=== PATIENT | male | born 2005 | race Caucasian/White ===

== ENCOUNTER 2024-03-23 13:21 | Emergency (ER) | payer MEDICAID ==
[2024-03-23 13:36] VITALS: O2SAT 99
--- NOTE | 2024-03-23 14:28 | ED Physician Documentation ---
History of Present Illness - Stated complaint Stated Complaint: LT HIP INJURY - Chief complaint Chief Complaint: Ext Problem - Additonal information Additional information: 18-year-old male identifies as female presents emergency department for left hip and left foot pain. Patient is quite irritable when I ask her questions she continues to say already talked to the nurse I do not need to tell you everything. For the limited information given the patient he was rollerskating last night somehow lost his balance fell onto her left hip and her left foot. There was no head injury denies use of blood thinners able to ambulate without any difficulty has taken Tylenol ibuprofen for pain no swelling bruising of the left hip or left foot. PD PAST MEDICAL HISTORY - Past Medical History Past Medical History: Yes Psych: Depression, Anxiety, ADD/ADHD, Other Other Past Medical History: on HRT - Past Surgical History Ortho: Other HEENT: Tonsil/Adenoidectomy - Allergies Allergies/Adverse Reactions: Allergies Allergy/AdvReac Type Severity Reaction Status Date / Time No Known Drug Allergies Allergy Verified 03/23/24 13:30 - Social History Does the pt smoke?: No Smoking Status: Never smoker PD ED PE NORMAL - Vitals Vital signs reviewed: Yes - General General: Alert and oriented X 3, No acute distress, Well developed/nourished - HEENT HEENT: Atraumatic, PERRL - Neck Neck: No bony TTP - Derm Derm: Normal color, Warm and dry, No rash, Other (No ecchymosis) - Extremities Extremities: No deformity, No tenderness to palpate, Normal ROM s pain, No edema, No calf tenderness / cord Results - Vitals Vitals: Vital Signs - 24 hr 03/23/24 03/23/24 13:25 15:15 Temperature 36.5 C 36.5 C Heart Rate 94 94 Respiratory 16 16 Rate Blood Pressure 147/64 H 147/67 H O2 Saturation 99 99 PD Medical Decision Making - ED course ED course: 18-year-old presents emerged part for left hip left foot pain. She is already taking Tylenol ibuprofen at home and says that this did help with the pain. Able to ambulate with any difficulty. There is tenderness to the volar aspect of the left foot but there is no swelling no bruising no abrasions able to ambulate without any difficulty patient would not allow me to evaluate her left hip patient states that she is confident that there is no left hip fracture. Offered to do x-rays of the left foot but patient says that she does not think it is broken which I agree with. She was asking for something stronger aside from Tylenol ibuprofen I informed her that Tylenol and ibuprofen should be enough to alleviate the pain that she is experiencing and encouraged to apply ice 20 minutes at a time 1 hour off for additional pain relief. Return precautions given all questions answered patient safe for discharge at this time. Departure - Departure Disposition: 01 Home, Self Care Clinical Impression: Contusion of left foot Instructions: ED Contusion Foot Comments: Thank you for trusting us with your care. It appears that you have a deep bone bruise on your left foot. You can apply ice 20 minutes at a time 1 hour off to help with Pain and discomfort as well as swelling. You can have 1000 mg of Tylenol every 8 hours for pain discomfort and 600 to 800 mg of ibuprofen every 6 hours for pain and discomfort. Keep your left foot elevated above your heart periodically throughout the day and follow-up with primary care provider as needed if pain persist longer than 4 to 6 weeks. Forms: PCP List Discharge Date/Time: 03/23/24 15:16
[2024-03-23] MEDS: ACETAMINOPHEN 500 MG TABLET PO STA (15:15)
[2024-03-23 15:16] VITALS: BP 147/67
== END 2024-03-23 15:16 | disposition home or self-care (01) ==
LOC: ED 13:21
DX: S90.32XA Contusion of left foot, initial encounter (principal); V00.121A Fall from non-in-line roller-skates, initial encounter; Y93.51 Activity, roller skating (inline) and skateboarding
CPT/HCPCS: 99283; A9270

== ENCOUNTER 2024-04-04 20:11 | Emergency (ER) | payer MEDICAID ==
--- NOTE | 2024-04-04 20:28 | ED Physician Documentation ---
PD HPI MHE - Stated complaint Stated Complaint: MHE - Chief complaint Chief Complaint: MHE - History obtained from History obtained from: Patient - History of Present Illness Pain level max: 0 Pain level now: 0 - Additional information Additional information: Patient is a 18-year-old transgender biological male who lives at [facility] in [place]. She states that he cut himself tonight. She was not trying to harm herself. She states that she is not suicidal but feels like she is "mentally unstable". She states that all she does is get high all day long. She is requesting an inpatient psychiatric stay to "reset his brain". She moved here 2 weeks ago from [place]. She states that his parents kicked him out of [facility] back in [place]. Patient states that she has been hospitalized several times back in [place]. Does not have a counselor. Does not have a psychiatrist. Is not talking with the counselors at [facility]. Review of Systems Constitutional: denies: Fever, Chills GI: denies: Vomiting : denies: Dysuria Skin: denies: Rash PD PAST MEDICAL HISTORY - Past Medical History Past Medical History: Yes Psych: Depression, Anxiety, ADD/ADHD, Other - Past Surgical History Ortho: Other HEENT: Tonsil/Adenoidectomy - Allergies Allergies/Adverse Reactions: Allergies Allergy/AdvReac Type Severity Reaction Status Date / Time No Known Drug Allergies Allergy Verified 04/04/24 20:28 - Social History Does the pt smoke?: No Smoking Status: Never smoker PD ED PE NORMAL - Vitals Vital signs reviewed: Yes - General General: Alert and oriented X 3, No acute distress - HEENT HEENT: Moist mucous membranes - Neck Neck: Supple, no meningeal sign - Cardiac Cardiac: RRR - Respiratory Respiratory: No respiratory distress, Clear bilaterally - Abdomen Abdomen: Soft, Non tender, Non distended - Derm Derm: Warm and dry - Extremities Extremities: Other (Superficial cuts to the right arm. None that require repair. There is old scarring to both arms.) - Neuro Neuro: Alert and oriented X 3 - Psych Psych: Normal mood, Normal affect Results - Vitals Vitals: Vital Signs - 24 hr 04/04/24 20:24 Temperature 37.0 C Heart Rate 104 H Respiratory 20 Rate Blood Pressure 137/62 H O2 Saturation 99 Oxygen O2 Source Room air - Labs Labs: Laboratory Tests 04/04/24 04/04/24 04/04/24 20:29 20:39 20:39 WBC 10.5 RBC 3.99 L Hgb 11.8 L Hct 35.3 L MCV 88.5 MCH 29.6 MCHC 33.4 RDW 13.2 Plt Count 356 MPV 9.2 Neut # (Auto) 6.3 Lymph # (Auto) 3.2 [place] # (Auto) 0.6 Eos # (Auto) 0.3 Baso # (Auto) 0.0 Absolute Nucleated RBC 0.00 Nucleated RBC % 0.0 Sodium 140 Potassium 3.7 Chloride 108 Carbon Dioxide 26 Anion Gap 6.0 BUN 15 Creatinine 0.8 Estimated GFR (MDRD) 125 Glucose 108 H Calcium 9.1 Magnesium 1.8 Total Bilirubin 0.3 AST 32 ALT 51 Alkaline Phosphatase 92 Total Protein 6.2 L Albumin 3.9 Globulin 2.3 Albumin/Globulin Ratio 1.7 Lipase 23 TSH 1.47 Urine Color Urine Clarity Urine pH Ur Specific [place] Urine Protein Urine Glucose (UA) Urine Ketones Urine Occult Blood Urine Nitrite Urine Bilirubin Urine Urobilinogen Ur Leukocyte Esterase Ur Microscopic Review Urine Culture Comments Salicylates < 1.5 Urine Opiates Screen Ur Buprenorphine Scrn Ur Oxycodone Screen Urine Methadone Screen Acetaminophen 1.9 Ur Barbiturates Screen Ur Tricyclics Screen Ur Phencyclidine Scrn Ur Amphetamine Screen U Methamphetamines Scrn U Benzodiazepines Scrn Urine Cocaine Screen U Cannabinoids Screen Ur Drug Screen Comment Ethyl Alcohol < 10.0 SARS-CoV-2 (PCR) NOT DETECTED 04/04/24 21:20 WBC RBC Hgb Hct MCV MCH MCHC RDW Plt Count MPV Neut # (Auto) Lymph # (Auto) [place] # (Auto) Eos # (Auto) Baso # (Auto) Absolute Nucleated RBC Nucleated RBC % Sodium Potassium Chloride Carbon Dioxide Anion Gap BUN Creatinine Estimated GFR (MDRD) Glucose Calcium Magnesium Total Bilirubin AST ALT Alkaline Phosphatase Total Protein Albumin Globulin Albumin/Globulin Ratio Lipase TSH Urine Color YELLOW Urine Clarity CLEAR Urine pH 6.0 Ur Specific [place] 1.025 Urine Protein NEGATIVE Urine Glucose (UA) NEGATIVE Urine Ketones TRACE Urine Occult Blood NEGATIVE Urine Nitrite NEGATIVE Urine Bilirubin NEGATIVE Urine Urobilinogen 1 (NORMAL) Ur Leukocyte Esterase NEGATIVE Ur Microscopic Review NOT INDICATED Urine Culture Comments NOT INDICATED Salicylates Urine Opiates Screen NEGATIVE Ur Buprenorphine Scrn NEGATIVE Ur Oxycodone Screen NEGATIVE Urine Methadone Screen NEGATIVE Acetaminophen Ur Barbiturates Screen NEGATIVE Ur Tricyclics Screen NEGATIVE Ur Phencyclidine Scrn NEGATIVE Ur Amphetamine Screen NEGATIVE U Methamphetamines Scrn NEGATIVE U Benzodiazepines Scrn NEGATIVE Urine Cocaine Screen NEGATIVE U Cannabinoids Screen POSITIVE H Ur Drug Screen Comment CUTOFF CONC BELOW: Ethyl Alcohol SARS-CoV-2 (PCR) PD Medical Decision Making - ED course Complexity details: reviewed results, re-evaluated patient, considered differential, d/w patient ED course: Patient is not actively suicidal. She states that she has no plan, she states that she cuts out of frustration. She fell asleep in the emergency department and when she awoke, was irritated that no one had told her how long this visit was going to take and when the psychiatrist was going to be able to talk to her. Informed her that we do not have control over how quickly the telepsychiatry consult occurs. She states that she does not want to stay in the hospital any longer and wants to go back to [facility]. She is not actively suicidal. She can follow-up with the counselor there. Prior to discharge, she took her belongings and left from the emergency department. Patient informed that she may return to the emergency department anytime should she change her mind. She can also contact the crisis line. Patient verbalizes understanding of this. This document was made in part using voice recognition software. While efforts are made to proofread this document, sound alike and grammatical errors may occur. Departure - Departure Disposition: Left Prior to Disposition Clinical Impression: Depression Qualifiers: Depression Type: unspecified Qualified Code(s): F32.A - Depression, unspecified Condition: Good Instructions: ED Depression Comments: You can speak with a counselors at [facility] if you are feeling like you are having mental health issues. They can help you with this. You can also contact the crisis line. If you are having any thoughts that you do not want to live, thoughts of hurting yourself, or thoughts of hurting anyone else, please call 911, the crisis line at 849, or go to your nearest emergency department. Crisis Line and is available to talk to someone [email or web address] is also available to chat with someone online if you prefer. There are also many resources on this website and apps for your phone to help with your mental health You can also text the word START to [phone] to chat with someome via text. Forms: PCP List Discharge Date/Time: 04/04/24 22:41
[2024-04-04 20:36] VITALS: BP 137/62; O2SAT 99
[2024-04-04 20:48] LABS: BASOPHILS % (AUTO) 0.4 %; EOSINOPHILS # (AUTO) 0.3 10^3/uL (0.0-0.7); EOSINOPHILS % (AUTO) 3.1 %; HCT - HEMATOCRIT 35.3 % (42.0-52.0); HGB - HEMOGLOBIN 11.8 g/dL (14.0-18.0); LYMPHOCYTES # (AUTO) 3.2 10^3/uL (1.5-3.5); LYMPHOCYTES % (AUTO) 30.2 %; MEAN CORPUSCULAR HEMOGLOBIN 29.6 pg (27.0-31.0); MEAN CORPUSCULAR HGB CONC 33.4 g/dL (32.0-36.0); MEAN CORPUSCULAR VOLUME 88.5 fL (80.0-94.0); MEAN PLATELET VOLUME 9.2 fL (7.4-11.4); MONOCYTES # (AUTO) 0.6 10^3/uL (0.0-1.0); MONOCYTES % (AUTO) 5.9 %; NEUTROPHILS # (AUTO) 6.3 10^3/uL (1.5-6.6); NEUTROPHILS % (AUTO) 59.9 %; PLT - PLATELET COUNT 356 10^3/uL (130-450); RED BLOOD COUNT 3.99 10^6/uL (4.70-6.10); RED CELL DISTRIBUTION WIDTH 13.2 % (12.0-15.0); WHITE BLOOD COUNT 10.5 x10^3/uL (4.8-10.8)
[2024-04-04 21:08] LABS: ACETAMINOPHEN 1.9 ug/mL; ALBUMIN 3.9 g/dL (3.2-5.5); ALBUMIN/GLOBULIN RATIO 1.7 (1.0-2.2); ALKALINE PHOSPHATASE 92 IU/L (42-121); ALT ALANINE AMINOTRANSFERASE 51 IU/L (10-60); AST ASPARTATE AMINOTRANSFERASE 32 IU/L (10-42); BILIRUBIN,TOTAL 0.3 mg/dL (0.2-1.0); BUN - BLOOD UREA NITROGEN 15 mg/dL (6-20); CALCIUM 9.1 mg/dL (8.5-10.3); CARBON DIOXIDE - CO2 26 mmol/L (21-32); CHLORIDE 108 mmol/L (101-111); CREATININE 0.8 mg/dL (0.6-1.3); ETOH - ETHANOL < 10.0 mg/dL; GFR - MDRD 125 (>89); GLUCOSE 108 mg/dL (74-104); LIPASE 23 U/L (11-82); MAGNESIUM 1.8 mg/dL (1.7-2.3); POTASSIUM 3.7 mmol/L (3.5-4.5); SODIUM 140 mmol/L (135-145); TOTAL PROTEIN 6.2 g/dL (6.4-8.9)
[2024-04-04 21:11] LABS: SALICYLATE < 1.5 mg/dL
[2024-04-04 21:34] LABS: BILIRUBIN,URINE NEGATIVE (NEGATIVE); GLUCOSE, URINE (UA) NEGATIVE (NEGATIVE); KETONES,URINE (UA) TRACE mg/dL (NEGATIVE); LEUKOCYTE ESTERASE, URINE NEGATIVE (NEGATIVE); NITRITE,URINE NEGATIVE (NEGATIVE); OCCULT BLOOD,URINE NEGATIVE (NEGATIVE); PROTEIN,URINE NEGATIVE (NEGATIVE); UROBILINOGEN,URINE 1 (NORMAL) E.U./dL (NORMAL)
[2024-04-04 21:35] LABS: CLARITY,URINE CLEAR (CLEAR)
[2024-04-04 21:40] LABS: THYROID STIMULATING HORMONE 1.47 uIU/mL (0.34-5.60)
[2024-04-04 21:44] LABS: AMPHETAMINE SCREEN,URINE NEGATIVE (NEGATIVE); BARBITURATE SCREEN,UR NEGATIVE (NEGATIVE); BENZODIAZEPINES SCREEN, URINE NEGATIVE (NEGATIVE); BUPRENORPHINE SCREEN, URINE NEGATIVE (NEGATIVE); COCAINE SCREEN URINE NEGATIVE (NEGATIVE); METHADONE SCREEN, URINE NEGATIVE (NEGATIVE); METHAMPHETAMINES SCREEN, URINE NEGATIVE (NEGATIVE); OPIATE SCREEN, URINE NEGATIVE (NEGATIVE); OXYCODONE SCREEN, URINE NEGATIVE (NEGATIVE); THC CANNABINOID SCREEN, URINE POSITIVE (NEGATIVE); TRICYCLIC ANTIDEPRESSANT,URINE NEGATIVE (NEGATIVE)
--- NOTE | 2024-04-04 22:21 | TELEPSYCH PHYS NOTE ---
ITP Telepsych Consult Consult Date: 04/04/24 Name of Referring Provider:: Heriberto Bah MD Reason for Consult: Mental Health Evaluation - Assessment Language: Northern Irish Residential Gas Heat Technician Required: No Cultural, Mormonism or Spiritual Preferences: Denies Notes: [facility] Chief Complaint: Self Harm and "Mentally Unstable." History of Present Illness: Patient is a 18 year old transgender male that presents to the ED for self harm and feeling "mentally unstable. Patient cut self on. Patient is staying at [facility] in [place] after being kicked out of [facility] house in [place] two weeks ago. Patient states she feels "mentally unstable" and would like to reset her brain in an inpatient mental health unit. She does admit to "just getting high all day." Psychiatric History - Treatment History: Inpatient for mental health several times in [place]. Does not currently have a mental health medication provider or therapist. Does not utilize counselors at [facility]. Community Resources Accessed: N/A - Medication & Allergies Allergies/Adverse Reactions: Allergies Allergy/AdvReac Type Severity Reaction Status Date / Time No Known Drug Allergies Allergy Verified 04/04/24 20:28 - Drug & Alcohol History Does patient have Drug/ETOH history or addictive behavior?: Yes Use: Uses substance without health or social issues: Cannabis - Medical History Psychiatric: reports: Depression, Anxiety, ADD/ADHD, Other - Surgical History HEENT: reports: Tonsil/Adenoidectomy Orthopedic: reports: Other
== END 2024-04-04 22:41 | disposition home or self-care (01) ==
LOC: ED 20:11
DX: F32.A Depression, unspecified (principal)
CPT/HCPCS: 36415; 80053; 80143; 80179; 80306; 81001; 81003; 82077; 83690; 83735; 84443; 85025; 87086; 87635; 99283

== ENCOUNTER 2024-07-18 09:09 | Observation (INO) ==
--- NOTE | 2024-07-18 11:33 | ED Physician Documentation ---
PD HPI ABD PAIN Stated complaint Stated Complaint: ABD PAIN Chief complaint Chief Complaint: Abd Pain Additional information Additional information: 20-year-old male identifies as female currently transitioning on progesterone and estradiol for these medications presents emergency department for 3 to 4 days of abdominal pain and fevers at 203 degrees at home. Patient says that she has no history of abdominal surgeries and has never experienced any pain like this before. Last bowel movement was today patient says it is hard to say if it was hard or not has been taking Tylenol ibuprofen at home with little to no comfort also received 30 mg Toradol given by EMS with little to no relief. Meds/Allgy Home Medications Ambulatory Orders Medication Instructions Recorded Confirmed estradiol valerate 20 mg/mL 10 mg IM OAW 05/24/24 07/18/24 intramuscular oil fluoxetine 10 mg tablet 10 mg PO DAILY 05/24/24 07/18/24 progesterone micronized 100 mg 100 mg PO DAILY 05/24/24 07/18/24 capsule Allergies Allergies Allergy/AdvReac Type Severity Reaction Status Date / Time No Known Drug Allergies Allergy Verified 07/15/24 15:04 [facility] Medical History Medical History (Updated 07/18/24 @ 17:22 by Glen Mejia DNP) Deliberate self-cutting Surgical History Surgical History H/O hand surgery Social History Social History (Updated 07/15/24 @ 15:08 by Luis Markham RN) Smoking Status: Current every day smoker Number of Years Smoked: 3 Do you dip or chew tobacco?: Yes Do you vape?: Yes Patient requests smoking cessation consult: No Initiate information on smoking cessation: No Relationship: Level: Independent Do you feel safe in your home environment?: Yes Suffered physical, verbal, emotional, or financial abuse?: No History of Abuse: No ETOH Use: None Frequency: Occasional Substance Use: former substance user POLST Patient has POLST: No Exam Constitutional abnormal general appearance other (ill appearing), no apparent distress, abnormal body habitus (overweight), no limitations and alert HENMT normocephalic Eyes EOMs intact bilaterally and conjunctivae normal Chest inspection of chest normal and palpation of chest normal Respiratory breath sounds equal bilaterally, normal respiratory effort, clear to auscultation bilaterally and no wheezes Cardiovascular normal heart rate noted and regular rhythm noted Gastrointestinal abdomen normal to inspection, abdomen soft to palpation and tender to palpation (severe), (LLQ), (RLQ), (periumbilical) and (suprapubic) Genitourinary no CVA tenderness and bladder abnormal to palpation (tender) Skin skin color abnormal (pale) Results Vitals Vitals: Vital Signs - 24 hr 07/18/24 09:13 07/18/24 11:22 07/18/24 12:12 Temperature 35.6 C L Temperature Source Temporal Artery Scan Pulse Rate 92 78 Respiratory Rate 16 18 Blood Pressure 117/68 122/80 O2 Saturation 98 98 O2 Source Room air Room air Pain Intensity 8 3 7 07/18/24 13:00 07/18/24 13:05 07/18/24 14:58 Temperature Temperature Source Pulse Rate 102 H Respiratory Rate 16 Blood Pressure 102/73 O2 Saturation 97 O2 Source Room air Pain Intensity 6 6 8 07/18/24 15:00 07/18/24 16:02 07/18/24 16:16 Temperature Temperature Source Pulse Rate 100 Respiratory Rate 18 Blood Pressure 110/74 O2 Saturation 97 O2 Source Room air Pain Intensity 6 6 8 Oxygen O2 Source Room air Labs Labs: Laboratory Tests 07/18/24 07/18/24 07/18/24 11:25 11:43 15:30 WBC 30.5 H RBC 4.15 L Hgb 11.6 L Hct 34.4 L MCV 82.9 MCH 28.0 MCHC 33.7 RDW 13.2 Plt Count 326 MPV 9.5 Neut # (Auto) Not Reportable Lymph # (Auto) Not Reportable [place] # (Auto) Not Reportable Eos # (Auto) Not Reportable Baso # (Auto) Not Reportable Absolute Nucleated RBC Not Reportable Total Counted 100 Band Neuts % (Manual) 22 H Abnorm Lymph % (Manual) 0 Metamyelocytes % 2 H Nucleated RBC % Not Reportable Neutrophils # (Manual) 28.1 H Lymphocytes # (Manual) 1.2 L Monocytes # (Manual) 0.6 Eosinophils # (Manual) 0.0 Basophils # (Manual) 0.0 Differential Comment MANUAL DIFFERENTIAL RBC Morph Micro Appear 1+ ANISOCYTOSIS Sodium 131 L Potassium 2.8 L Chloride 95 L Carbon Dioxide 26 Anion Gap 10.0 BUN 12 Creatinine 0.9 Estimated GFR (MDRD) 108 Glucose 97 Calcium 8.5 Magnesium 1.9 Total Bilirubin 2.6 H AST 31 ALT 53 Alkaline Phosphatase 172 H Total Protein 6.8 Albumin 3.4 Globulin 3.4 Albumin/Globulin Ratio 1.0 Lipase < 10 L Urine Color DARK YELLOW Urine Clarity HAZY Urine pH 6.0 Ur Specific [place] 1.010 Urine Protein 30 H Urine Glucose (UA) 100 H Urine Ketones TRACE Urine Occult Blood MODERATE H Urine Nitrite NEGATIVE Urine Bilirubin MODERATE H Urine Urobilinogen >=8.0 H Ur Leukocyte Esterase NEGATIVE Urine RBC 6-10 H Urine WBC 11-25 H Ur Squamous Epith Cells FEW Squamous Urine Bacteria Few Ur Microscopic Review INDICATED Urine Culture Comments INDICATED Nasal Adenovirus (PCR) NOT DETECTED Nasal B. parapertussis DNA (PCR) NOT DETECTED Nasal Coronavir 229E PCR NOT DETECTED Nasal Coronavir HKU1 PCR NOT DETECTED Nasal Coronavir NL63 PCR NOT DETECTED Nasal Coronavir OC43 PCR NOT DETECTED Nasal Enterovir/Rhinovir PCR NOT DETECTED Nasal Influenza B PCR NOT DETECTED Nasal Influenza A PCR NOT DETECTED Nasal Parainfluen 1 PCR NOT DETECTED Nasal Parainfluen 2 PCR NOT DETECTED Nasal Parainfluen 3 PCR NOT DETECTED Nasal Parainfluen 4 PCR NOT DETECTED Nasal RSV (PCR) NOT DETECTED Nasal B.pertussis DNA PCR NOT DETECTED Nasal C.pneumoniae (PCR) NOT DETECTED Uvaldo Human Metapneumo PCR NOT DETECTED Nasal M.pneumoniae (PCR) NOT DETECTED Nasal SARS-CoV-2 (PCR) NOT DETECTED Rads (name of study) CT abdomen pelvis with: Relevant Findings:: Final report received and EMP independent interpretation of test Interpretation: IMPRESSION: Abnormal diffuse mesenteric edema lower abdomen/pelvis as discussed above. Moderate bladder wall thickening which may be reactive or related to cystitis. Moderate wall thickening of the sigmoid colon, rectum and anus wall thickening, suspicious for infectious/inflammatory colitis, proctitis or other process as discussed above. Moderate hepatosplenomegaly. Mild ileus/bowel stasis. Follow-up is needed. PD Medical Decision Making ED course Complexity details: reviewed results, re-evaluated patient, d/w patient and d/w media sales consultant (Gen Surg Dr. Madsen) ED course: 19 male presents emergency department for lower abdominal pain. Differentials include UTI, prostatitis, Constipation, small obstruction, appendicitis. labs are complete for further evaluation he has significant leukocytosis, white blood cell count 30.5. Mild anemia, hemoglobin 11.6, hematocrit 34.4. hypokalemia, 2.840 mEq p.o. potassium administered. Mild hyponatremia 131, bilirubin elevated at 2.6 alk phos also elevated at 172. Urinalysis has hematuria, glucose, bilirubin no leukocytes no nitrates. Respiratory swab negative. CT abdomen pelvis complete for further evaluation and reveal abnormal appearance of the lower abdomen/pelvis with diffuse mesenteric edema mostly surrounding the mid and distal sigmoid colon, rectum to the anus along with moderate wall thickening as well as urinary bladder. Moderate bladder wall thickening measuring 1.cm this possibly could be due to infectious/inflammatory, ulcerative colitis, Crohn's disease or other acute process ischemic colitis unlikely nine 19-year-old. I spoke with on-call GEN surge Dr. Maldonado about the patient's case as well as the CT findings including the hepatosplenomegaly he believes that this is unlikely colitis given his white count and he thinks that patient would benefit from hospitalization and antibiotics but no surgical intervention is warranted at this time. I did asked the patient if he has recently stuck anything of his rectum and he declined and said that it has not been anything recent but he has put things in the rectum in the past. I spoke with on-call hospitalist Akua Reza who is graciously agreed to admit the patient and patient is very eager to stay for further workup and evaluation. 2 sets of blood cultures were collected and patient was started on IV vancomycin. Discharge Plan Discharge Patient Disposition: 66 [facility] DC/Xfer Condition: Stable Clinical Impression: Leukocytosis, Hypokalemia, Hepatosplenomegaly Interventions: ED Admission Assessment Last Done: 07/18/24 17:15
[2024-07-18] MEDS ORDERED: iohexoL-300 100 ML VIAL ONE (11:35)
[2024-07-18 11:52] LABS: BASOPHILS % (AUTO) 0.1 %; EOSINOPHILS % (AUTO) 0.1 %; HCT - HEMATOCRIT 34.4 % (42.0-52.0); HGB - HEMOGLOBIN 11.6 g/dL (14.0-18.0); LYMPHOCYTES % (AUTO) 2.8 %; MEAN CORPUSCULAR HGB CONC 33.7 g/dL (32.0-36.0); MEAN CORPUSCULAR VOLUME 82.9 fL (80.0-94.0); MEAN PLATELET VOLUME 9.5 fL (7.4-11.4); MONOCYTES % (AUTO) 3.8 %; NEUTROPHILS % (AUTO) 91.6 %; PLT - PLATELET COUNT 326 10^3/uL (130-450); RED BLOOD COUNT 4.15 10^6/uL (4.70-6.10); RED CELL DISTRIBUTION WIDTH 13.2 % (12.0-15.0); WHITE BLOOD COUNT 30.5 x10^3/uL (4.8-10.8)
[2024-07-18 11:57] LABS: ABNORMAL LYMPHS % (MANUAL) 0 %
[2024-07-18 12:01] LABS: BILIRUBIN,URINE MODERATE (NEGATIVE); GLUCOSE, URINE (UA) 100 mg/dL (NEGATIVE); KETONES,URINE (UA) TRACE mg/dL (NEGATIVE); LEUKOCYTE ESTERASE, URINE NEGATIVE (NEGATIVE); NITRITE,URINE NEGATIVE (NEGATIVE); OCCULT BLOOD,URINE MODERATE (NEGATIVE); PROTEIN,URINE 30 mg/dL (NEGATIVE); UROBILINOGEN,URINE >=8.0 E.U./dL (NORMAL)
[2024-07-18 12:01] LABS: ALBUMIN 3.4 g/dL (3.2-5.5); ALKALINE PHOSPHATASE 172 IU/L (42-121); ALT ALANINE AMINOTRANSFERASE 53 IU/L (10-60); AST ASPARTATE AMINOTRANSFERASE 31 IU/L (10-42); BILIRUBIN,TOTAL 2.6 mg/dL (0.2-1.0); BUN - BLOOD UREA NITROGEN 12 mg/dL (6-20); CALCIUM 8.5 mg/dL (8.5-10.3); CARBON DIOXIDE - CO2 26 mmol/L (21-32); CHLORIDE 95 mmol/L (101-111); CREATININE 0.9 mg/dL (0.6-1.3); GFR - MDRD 108 (>89); GLUCOSE 97 mg/dL (74-104); POTASSIUM 2.8 mmol/L (3.5-4.5); SODIUM 131 mmol/L (135-145); TOTAL PROTEIN 6.8 g/dL (6.4-8.9)
[2024-07-18 12:04] LABS: LIPASE < 10 U/L (11-82)
[2024-07-18] MEDS: HYDROmorphone 0.5 MG/0.5 ML SYRINGE IVP STA ×3 (12:12→16:16)
[2024-07-18] MEDS: ONDANSETRON 4 MG/2 ML VIAL IVP STA (12:12)
[2024-07-18] MEDS: SODIUM CHLORIDE 0.9% 1,000 ML IV STA ×2 (12:13→18:38)
[2024-07-18 12:17] LABS: CLARITY,URINE HAZY (CLEAR)
[2024-07-18 12:29] LABS: BAND NEUTROPHILS % (MANUAL) 22 %; DIFFERENTIAL COMMENT MANUAL DIFFERENTIAL; LYMPHOCYTES # (MANUAL) 1.2 10^3/uL (1.5-3.5); LYMPHOCYTES % (MANUAL) 4 %; METAMYELOCYTES % (MANUAL) 2 %; MONOCYTES # (MANUAL) 0.6 10^3/uL (0.0-1.0); NEUTROPHILS # (MANUAL) 28.1 10^3/uL (1.5-6.6); RBC MORPHOLOGY (MULTIPLE) 1+ ANISOCYTOSIS (NORMAL)
[2024-07-18 12:45] LABS: BACTERIA,URINE Few /HPF (None Seen); SQUAMOUS EPITHELIAL CELL,UR FEW Squamous (<= Few)
[2024-07-18] MEDS: POTASSIUM CHLORIDE 20 MEQ TABLET PO STA (13:03)
--- NOTE | 2024-07-18 15:41 | CT Report ---
PROCEDURE: CT Abdomen/Pelvis W with IV contrast INDICATIONS: Abdominal pain, fever CONTRAST: 100ml omni 300 TECHNIQUE: After the administration of intravenous contrast, a CT scan of the abdomen and pelvis was performed. Images were recorded and evaluated at appropriate window settings. Reformats: coronal and sagittal. F or radiation dose reduction, the following was used: automated exposure control, adjustment of mA and /or kV according to patient size. COMPARISON: None. FINDINGS: ABDOMEN / PELVIS: Abnormal appearance of the lower abdomen/pelvis with diffuse mesenteric edema most notably surroundin g the mid and distal sigmoid colon, rectum to the anus along with moderate wall thickening as well as the urinary bladder. Moderate bladder wall thickening measuring up to 1 cm which may be reactive or related to cystitis or other process. Findings are suspicious for colitis, proctitis commonly infecti ous/inflammatory, ulcerative colitis, Crohn's disease or other process. Ischemic colitis would be unl ikely in a 19-year-old. Mild bilateral paracolic gutter and pelvic free fluid most notably posterior to the rectum, presacral without focal loculated fluid collection to suggest abscess. Moderate splenomegaly, the spleen measures up to approximately 17.5 cm CC x 13.5 cm AP by 8.5 cm frias sverse maximal dimensions. Nonspecific mild prominence of the splenic vein. Moderate hepatomegaly the liver measures 21 cm in CC dimension of the right lobe. Mild ileus/bowel stasis with mildly dilated proximal jejunum with a few air-fluid levels measures up to [address] evidence of bowel obstruction. The appendix is nondilated. Cecum, ascen ding, transverse, descending colon within normal limits. Lower chest: Mild right lower lobe subsegmental atelectasis and nonspecific patchy groundglass opacif ication. Gallbladder: No radiopaque stones or wall thickening. Biliary tree: No intrahepatic or extrahepatic dilation, accounting for age. Pancreas: No pancreatic ductal dilation. Adrenals: No adrenal nodule. Kidneys and ureters: No hydronephrosis. No renal cystic lesion which requires follow up. No solid mas s. Stomach: No gastric dilation. No abnormal wall thickening. Lymph nodes: No central or retroperitoneal adenopathy. Vessels: No infrarenal aortic aneurysm. Patent portal vein. Reproductive organs: Unremarkable. Bones normal without focal osseous lesion. IMPRESSION: Abnormal diffuse mesenteric edema lower abdomen/pelvis as discussed above. Moderate bladder wall thickening which may be reactive or related to cystitis. Moderate wall thickening of the sigmoid colon, rectum and anus wall thickening, suspicious for infect ious/inflammatory colitis, proctitis or other process as discussed above. Moderate hepatosplenomegaly. Mild ileus/bowel stasis. Follow-up is needed. Reviewed by: José Manuel Stewart MD on 07/18/2024 3:39 PM PST Approved by: José Manuel Stewart MD on 07/18/2024 3:39 PM PST Station ID: [id number]
[2024-07-18] MEDS: PIPERACILLIN/TAZOBACTAM 3.375 GM in SODIUM CHLORIDE 0.9% MINIBAG 100 ML IV STA (16:16)
[2024-07-18 16:32] LABS: B. PARAPERTUSSIS- RESP PCR PAN NOT DETECTED; B. PERTUSSIS- RESP PCR PANEL NOT DETECTED; C. PNEUMONIAE- RESP PCR PANEL NOT DETECTED; CORONAVIRUS 229E-RESP PCR NOT DETECTED; CORONAVIRUS HKU1-RESP PCR NOT DETECTED; CORONAVIRUS NL63-RESP PCR NOT DETECTED; CORONAVIRUS OC43-RESP PCR NOT DETECTED; HUMAN METAPNEUMOVIRUS NOT DETECTED; INFLUENZA A- RESP PCR PANEL NOT DETECTED; INFLUENZA B - RESP PCR PANEL NOT DETECTED; M. PNEUMONIAE- RESP PCR PANEL NOT DETECTED; PARAINFLUENZA VIRUS 1 NOT DETECTED; PARAINFLUENZA VIRUS 2 NOT DETECTED; PARAINFLUENZA VIRUS 3 NOT DETECTED; PARAINFLUENZA VIRUS 4 NOT DETECTED; RHINOVIRUS/ENTEROVIRUS NOT DETECTED; RSV- RESP PCR PANEL NOT DETECTED; SARS-CoV-2 -RESP PCR PANEL NOT DETECTED
[2024-07-18] MEDS ORDERED: NS W/40 MEQ KCL 1,000 ML IV SCH (17:00)
[2024-07-18] MEDS ORDERED: ONDANSETRON ODT 4 MG TABLET TL PRN (17:19)
--- NOTE | 2024-07-18 17:23 | HISTORY & PHYSICAL EXAMINATION ---
Chief Complaint Chief Complaint Chief Complaint: Fevers, abdominal pain History of Present Illness Admitted From Admitted From:: ED History Obtained From History obtained from: Patient, chart review Exam Limitations: None History of Present Illness HPI Comment/Other: 19-year-old MTF transgender on progesterone and estradiol presents to the ED with 3 to 4 days of abdominal pain and fevers at home. Denies any history of abdominal surgeries. Denies receptive anal intercourse, trauma/assault. He reports last bowel movement was today. He reports delayed start with urination and rectal pain during urination. In the ER, he was noted to have a severe leukocytosis at 30.5. He is mildly tachycardic at 100, and his abdominal pain is requiring IV pain medication. His potassium is noted to be 2.8, so hospitalist was contacted for admission. General surgery was also contacted, they report there is no need for surgical consultation at this time but they are on standby if needed. Meds/Allgy Home Medications Ambulatory Orders Medication Instructions Recorded Confirmed estradiol valerate 20 mg/mL 10 mg IM OAW 05/24/24 07/18/24 intramuscular oil fluoxetine 10 mg tablet 10 mg PO DAILY 05/24/24 07/18/24 progesterone micronized 100 mg 100 mg PO DAILY 05/24/24 07/18/24 capsule Allergies Allergies Allergy/AdvReac Type Severity Reaction Status Date / Time No Known Drug Allergies Allergy Verified 07/15/24 15:04 [facility], [facility] Medical History Medical History (Updated 07/18/24 @ 17:22 by Glen Mejia DNP) Deliberate self-cutting Surgical History Surgical History H/O hand surgery Social History Social History (Updated 07/15/24 @ 15:08 by Luis Markham RN) Smoking Status: Never smoker Do you vape?: Yes Relationship: Level: Independent Do you feel safe in your home environment?: Yes Suffered physical, verbal, emotional, or financial abuse?: No History of Abuse: No ETOH Use: None Frequency: Occasional Substance Use: cannabis (any form) POLST Patient has POLST: No Review of Systems Status of ROS: 10 or more systems reviewed and unremarkable except as noted in history and below Constitutional Reports: Fever and Chills Eyes Denies: Pain or Irritation Cardiovascular Reports: palpitations (Increased heart rate at home during episodes of abdominal pain/Fevers); Denies: Irregular heart rate, edema or shortness of breath with exertion Respiratory Denies: Shortness of breath or Chest congestion Gastrointestinal Reports: Abdominal pain, Nausea, Vomiting, Poor appetite and Rectal pain; Denies: Abdominal distention Genitourinary Reports: Painful urination and Difficulty urinating Integumentary/Breast Reports: Other (Remote history of cutting) Neurological Denies: General weakness Exam Constitutional normal general appearance, no apparent distress and abnormal body habitus (obese) HENMT normocephalic and head/scalp atraumatic Eyes PERRL Neck/C-Spine visual inspection normal Lymph no lymphadenopathy noted Chest inspection of chest normal Respiratory breath sounds equal bilaterally Cardiovascular normal heart rate noted, regular rhythm noted and no murmur Gastrointestinal tender to palpation (LLQ), (LUQ) and (suprapubic) Genitourinary CVA tenderness noted 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 given by ER provider Additional 40 mill equivalent IV BMP in a.m. Manage colitis (2) Colitis: Plan: Per general surgery, no indication for surgical consult at this time Aggressive IV fluid resuscitation Patient reports no receptive anal intercourse or assault Patient history is questionable, will go ahead and perform STD testing including syphilis, HIV, gonorrhea, trichomonas Zosyn Okay for diet (3) Leukocytosis: Plan: Manage colitis as above CBC in a.m. (4) Cystitis: Plan: Zosyn Urine culture pending STD panel (5) Deliberate self-cutting: Plan: Reports no recent cutting, scars look old No concern at this time for ongoing self-harm Plan Placed in observation Patient request full code Reports that his grandmother, Naina, is surrogate decision-maker Lab Results Lab results reviewed: Yes 07/18/24 11:43 07/18/24 11:43 Diagnostic Imaging Results Diagnostic Imaging Results: positive Final report reviewed Core Measures Anticipated LOS I expect patient to be DC'd or transferred within 96 hours.: Yes DVT/VTE - Prophylaxis VTE/DVT Prophylaxis med ordered at admit?: Yes
[2024-07-18] MEDS: NS W/20 MEQ KCL 1,000 ML IV SCH (17:39)
[2024-07-18] MEDS: SODIUM CHLORIDE FLUSH 0.9% 10 ML SYRINGE IVP SCH (17:40)
[2024-07-18] MEDS: MORPHINE 2 MG/ML CARPUJECT IVP STA (17:40)
[2024-07-18] MEDS: ACETAMINOPHEN 500 MG TABLET PO SCH (17:40)
[2024-07-18] MEDS: oxyCODONE 5 MG TABLET PO PRN (18:13)
[2024-07-18] MEDS: SODIUM CHLORIDE 0.9% 1,000 ML IV ONE (18:39)
[2024-07-18] MEDS: LORazepam 0.5 MG TABLET PO PRN (18:52)
[2024-07-18] MEDS ORDERED: ACETAMINOPHEN 325 MG TABLET PO PRN (19:31)
[2024-07-18] MEDS: IBUPROFEN 400 MG TABLET PO PRN (19:48)
[2024-07-18] MEDS: MORPHINE 10 MG/ML VIAL IVP PRN (19:56)
[2024-07-18] MEDS: PIPERACILLIN/TAZOBACTAM 4.5 GM in SODIUM CHLORIDE 0.9% MINIBAG 100 ML IV SCH (19:58)
[2024-07-18 21:01] LABS: CHLAMYDIA TRACHOMATIS DNA NEGATIVE (NEGATIVE); NEISSERIA GONORRHOEAE DNA NEGATIVE (NEGATIVE); TRICHOMONAS VAGINALIS DNA NEGATIVE (NEGATIVE)
[2024-07-18] MEDS: HYDROmorphone 0.5 MG/0.5 ML SYRINGE IVP PRN (22:02)
[2024-07-18] MEDS: polyethylene glycoL 3350 17 GM PACKET PO SCH (22:51)
[2024-07-18] MEDS ORDERED: MELATONIN 3 MG TABLET PO PRN (22:51)
[2024-07-18] MEDS: traZODone 50 MG TABLET PO STA (22:55)
[2024-07-19 06:09] LABS: HCT - HEMATOCRIT 33.3 % (42.0-52.0); HGB - HEMOGLOBIN 11.1 g/dL (14.0-18.0); LYMPHOCYTES # (AUTO) 0.8 10^3/uL (1.5-3.5); MEAN CORPUSCULAR HEMOGLOBIN 28.2 pg (27.0-31.0); MEAN CORPUSCULAR HGB CONC 33.3 g/dL (32.0-36.0); MEAN CORPUSCULAR VOLUME 84.7 fL (80.0-94.0); MEAN PLATELET VOLUME 9.6 fL (7.4-11.4); MONOCYTES % (AUTO) 2.4 %; NEUTROPHILS # (AUTO) 36.3 10^3/uL (1.5-6.6); PLT - PLATELET COUNT 364 10^3/uL (130-450); RED BLOOD COUNT 3.93 10^6/uL (4.70-6.10); RED CELL DISTRIBUTION WIDTH 13.3 % (12.0-15.0)
[2024-07-19 06:20] LABS: SLIDE REVIEW? Indicated; WHITE BLOOD COUNT 41.2 x10^3/uL (4.8-10.8)
[2024-07-19 06:24] LABS: BILIRUBIN,TOTAL 2.6 mg/dL (0.2-1.0); CALCIUM 8.3 mg/dL (8.5-10.3); CREATININE 0.7 mg/dL (0.6-1.3); POTASSIUM 3.6 mmol/L (3.5-4.5); TOTAL PROTEIN 6.1 g/dL (6.4-8.9)
[2024-07-19 06:46] LABS: PLATELET ESTIMATE, MANUAL NORMAL (130-450,000) (NORMAL); PLATELET MORPHOLOGY NORMAL APPEARANCE (NORMAL); RBC MORPHOLOGY (MULTIPLE) NORMAL APPEARANCE (NORMAL); WBC MORPHOLOGY (MULTIPLE) NORMAL APPEARANCE (NORMAL)
[2024-07-19 06:47] LABS: DIFFERENTIAL COMMENT MANUAL=AUTO DIFF
--- NOTE | 2024-07-19 08:10 | PROVIDER PROGRESS NOTE ---
Subjective Prog Note Date Prog Note Date: 07/19/24 Subjective Pt reports feeling: No change Subjective: Still with abdominal pain, reports dry mouth, upset about constantly being interrupted during sleep Current Medications Current Medications Current Medications: Current Medications Generic Name Dose Route Start Last Admin Trade Name Freq PRN Reason Stop Dose Admin Acetaminophen 1,000 mg 07/18/24 17:00 07/19/24 00:24 Acetaminophen 500 Mg Tablet PO 1,000 mg Q8H LÓPEZ Administration Acetaminophen 650 mg 07/18/24 19:31 Acetaminophen 325 Mg Tablet PO Q6H PRN pain, fever Enoxaparin Sodium 40 mg 07/19/24 09:00 Enoxaparin 40 Mg/0.4 Ml Syringe SUBQ DAILY LÓPEZ Hydromorphone HCl 0.25 mg 07/18/24 21:27 07/19/24 08:00 Hydromorphone 0.5 Mg/0.5 Ml Syringe IVP 0.25 mg Q4H PRN Administration Severe Pain (Level 7-10) Piperacillin Sod/Tazobactam 100 mls @ 25 mls/hr 07/18/24 19:00 07/19/24 07:24 Sod 4.5 gm/ Sodium Chloride IV Infused Q8H LÓPEZ Infusion Ibuprofen 400 mg 07/18/24 19:30 07/18/24 19:48 Ibuprofen 400 Mg Tablet PO 400 mg Q6HR PRN Administration Moderate Pain (Level 4-6) Lorazepam 0.5 mg 07/18/24 18:30 07/19/24 08:00 Lorazepam 0.5 Mg Tablet PO 0.5 mg Q6H PRN Administration Anxiety Melatonin 3 mg 07/18/24 22:51 Melatonin 3 Mg Tablet PO QPM PRN sleep Melatonin 3 mg 07/19/24 21:00 Melatonin 3 Mg Tablet PO QPM LÓPEZ Ondansetron HCl 4 mg 07/18/24 17:19 Ondansetron Odt 4 Mg Tablet TL Q6HR PRN Nausea / Vomiting Ondansetron HCl 4 mg 07/18/24 17:19 Ondansetron 4 Mg/2 Ml Vial IVP Q6HR PRN Nausea / Vomiting Oxycodone HCl 5 mg 07/18/24 17:19 07/19/24 05:33 Oxycodone 5 Mg Tablet PO 5 mg Q4HR PRN Administration Moderate Pain (Level 4-6) Polyethylene Glycol 17 gm 07/18/24 22:35 07/18/24 22:51 Polyethylene Glycol 3350 17 Gm Packet PO 17 gm DAILY LÓPEZ Administration Sodium Chloride 10 ml 07/18/24 17:19 Sodium Chloride Flush 0.9% 10 Ml Syringe IVP PRN PRN NEEDED PER PROVIDER ORDERS Sodium Chloride 10 ml 07/18/24 17:19 07/19/24 00:15 Sodium Chloride Flush 0.9% 10 Ml Syringe IVP 10 ml 0100,0900,1700 LÓPEZ Administration Objective Vital Signs/Intake & Output Reviewed Vital Signs: Yes Vital Signs: Vital Signs x48h Temp Pulse Resp BP Pulse Ox 07/19/24 03:11 36.5 C 109 H 22 164/85 H 98 07/19/24 00:23 36.3 C L 99 22 136/83 H 97 Intake & Output: Intake & Output 07/16/24 07/17/24 07/18/24 07/19/24 23:59 23:59 23:59 23:59 Intake Total 3350 / 3350 1000 / 1000 Output Total 275 / 275 625 / 625 Balance 3075 / 3075 375 / 375 Weight (kg) 136 kg Objective General Appearance: positive No acute distress Eyes Bilateral: positive Normal inspection ENT: positive No signs of dehydration Neck: positive No JVD Respiratory: positive Chest non-tender and No respiratory distress Cardiovascular: positive Regular rate & rhythm and No murmur Abdomen: positive Tenderness (Left side) Skin: positive Color nml Extremities: positive Non-tender and No pedal edema Neurologic/Psychiatric: positive Oriented x3 Lab Results 07/19/24 05:35 07/19/24 05:35 Other Labs: Lab Results x24hrs 07/19/24 07/18/24 07/18/24 Range/Units 05:35 17:25 15:30 WBC 41.2 H* (4.8-10.8) x10^3/uL RBC 3.93 L (4.70-6.10) 10^6/uL Hgb 11.1 L (14.0-18.0) g/dL Hct 33.3 L (42.0-52.0) % MCV 84.7 (80.0-94.0) fL MCH 28.2 (27.0-31.0) pg MCHC 33.3 (32.0-36.0) g/dL RDW 13.3 (12.0-15.0) % Plt Count 364 (130-450) 10^3/uL MPV 9.6 (7.4-11.4) fL Neut # (Auto) 36.3 H Lymph # (Auto) 0.8 L [place] # (Auto) 1.0 Eos # (Auto) 0.0 Baso # (Auto) 0.0 Absolute Nucleated RBC 0.00 Total Counted Band Neuts % (Manual) Not Reportable (0 - 10) % Abnorm Lymph % (Manual) Not Reportable % Metamyelocytes % ( - 0) % Nucleated RBC % 0.0 Neutrophils # (Manual) Not Reportable (1.5-6.6) 10^3/uL Lymphocytes # (Manual) Not Reportable (1.5-3.5) 10^3/uL Monocytes # (Manual) Not Reportable (0.0-1.0) 10^3/uL Eosinophils # (Manual) Not Reportable (0-0.7) 10^3/uL Basophils # (Manual) Not Reportable (0-0.1) 10^3/uL Differential Comment MANUAL=AUTO DIFF Manual Slide Review Indicated WBC Morphology NORMAL APPEARANCE (NORMAL) Platelet Estimate NORMAL (130-450,000) (NORMAL) Platelet Morphology NORMAL APPEARANCE (NORMAL) RBC Morph Micro Appear NORMAL APPEARANCE (NORMAL) Sodium 134 L (135-145) mmol/L Potassium 3.6 (3.5-4.5) mmol/L Chloride 100 L (101-111) mmol/L Carbon Dioxide 27 (21-32) mmol/L Anion Gap 7.0 (6-13) BUN 9 (6-20) mg/dL Creatinine 0.7 (0.6-1.3) mg/dL Estimated GFR (MDRD) 144 (>89) Glucose 90 (74-104) mg/dL Calcium 8.3 L (8.5-10.3) mg/dL Magnesium 2.0 (1.7-2.3) mg/dL Total Bilirubin 2.6 H (0.2-1.0) mg/dL AST 15 (10-42) IU/L ALT 32 (10-60) IU/L Alkaline Phosphatase 147 H (42-121) IU/L Total Protein 6.1 L (6.4-8.9) g/dL Albumin 3.0 L (3.2-5.5) g/dL Globulin 3.1 (2.1-4.2) g/dL Albumin/Globulin Ratio 1.0 (1.0-2.2) Lipase (11-82) U/L Urine Color Urine Clarity (CLEAR) Urine pH (5.0-7.5) PH Ur Specific [place] (1.002-1.030) Urine Protein (NEGATIVE) mg/dL Urine Glucose (UA) (NEGATIVE) mg/dL Urine Ketones (NEGATIVE) mg/dL Urine Occult Blood (NEGATIVE) Urine Nitrite (NEGATIVE) Urine Bilirubin (NEGATIVE) Urine Urobilinogen (NORMAL) E.U./dL Ur Leukocyte Esterase (NEGATIVE) Urine RBC (0-5) /HPF Urine WBC (0-3) /HPF Ur Squamous Epith Cells (<= Few) Urine Bacteria (None Seen) /HPF Ur Microscopic Review Urine Culture Comments Nasal Adenovirus (PCR) NOT DETECTED Nasal B. parapertussis DNA (PCR) NOT DETECTED Nasal Coronavir 229E PCR NOT DETECTED Nasal Coronavir HKU1 PCR NOT DETECTED Nasal Coronavir NL63 PCR NOT DETECTED Nasal Coronavir OC43 PCR NOT DETECTED Nasal Enterovir/Rhinovir PCR NOT DETECTED Nasal Influenza B PCR NOT DETECTED Nasal Influenza A PCR NOT DETECTED Nasal Parainfluen 1 PCR NOT DETECTED Nasal Parainfluen 2 PCR NOT DETECTED Nasal Parainfluen 3 PCR NOT DETECTED Nasal Parainfluen 4 PCR NOT DETECTED Nasal RSV (PCR) NOT DETECTED Nasal B.pertussis DNA PCR NOT DETECTED Nasal C.pneumoniae (PCR) NOT DETECTED U[place]do Human Metapneumo PCR NOT DETECTED Nasal M.pneumoniae (PCR) NOT DETECTED Nasal SARS-CoV-2 (PCR) NOT DETECTED Chlam trachomat DNA PCR NEGATIVE (NEGATIVE) N.gonorrhoeae DNA (PCR) NEGATIVE (NEGATIVE) T. vaginalis (PCR) NEGATIVE (NEGATIVE) 07/18/24 07/18/24 Range/Units 11:43 11:25 WBC 30.5 H (4.8-10.8) x10^3/uL RBC 4.15 L (4.70-6.10) 10^6/uL Hgb 11.6 L (14.0-18.0) g/dL Hct 34.4 L (42.0-52.0) % MCV 82.9 (80.0-94.0) fL MCH 28.0 (27.0-31.0) pg MCHC 33.7 (32.0-36.0) g/dL RDW 13.2 (12.0-15.0) % Plt Count 326 (130-450) 10^3/uL MPV 9.5 (7.4-11.4) fL Neut # (Auto) Not Reportable Lymph # (Auto) Not Reportable [place] # (Auto) Not Reportable Eos # (Auto) Not Reportable Baso # (Auto) Not Reportable Absolute Nucleated RBC Not Reportable Total Counted 100 Band Neuts % (Manual) 22 H (0 - 10) % Abnorm Lymph % (Manual) 0 % Metamyelocytes % 2 H ( - 0) % Nucleated RBC % Not Reportable Neutrophils # (Manual) 28.1 H (1.5-6.6) 10^3/uL Lymphocytes # (Manual) 1.2 L (1.5-3.5) 10^3/uL Monocytes # (Manual) 0.6 (0.0-1.0) 10^3/uL Eosinophils # (Manual) 0.0 (0-0.7) 10^3/uL Basophils # (Manual) 0.0 (0-0.1) 10^3/uL Differential Comment MANUAL DIFFERENTIAL Manual Slide Review WBC Morphology (NORMAL) Platelet Estimate (NORMAL) Platelet Morphology (NORMAL) RBC Morph Micro Appear 1+ ANISOCYTOSIS (NORMAL) Sodium 131 L (135-145) mmol/L Potassium 2.8 L (3.5-4.5) mmol/L Chloride 95 L (101-111) mmol/L Carbon Dioxide 26 (21-32) mmol/L Anion Gap 10.0 (6-13) BUN 12 (6-20) mg/dL Creatinine 0.9 (0.6-1.3) mg/dL Estimated GFR (MDRD) 108 (>89) Glucose 97 (74-104) mg/dL Calcium 8.5 (8.5-10.3) mg/dL Magnesium 1.9 (1.7-2.3) mg/dL Total Bilirubin 2.6 H (0.2-1.0) mg/dL AST 31 (10-42) IU/L ALT 53 (10-60) IU/L Alkaline Phosphatase 172 H (42-121) IU/L Total Protein 6.8 (6.4-8.9) g/dL Albumin 3.4 (3.2-5.5) g/dL Globulin 3.4 (2.1-4.2) g/dL Albumin/Globulin Ratio 1.0 (1.0-2.2) Lipase < 10 L (11-82) U/L Urine Color DARK YELLOW Urine Clarity HAZY (CLEAR) Urine pH 6.0 (5.0-7.5) PH Ur Specific [place] 1.010 (1.002-1.030) Urine Protein 30 H (NEGATIVE) mg/dL Urine Glucose (UA) 100 H (NEGATIVE) mg/dL Urine Ketones TRACE (NEGATIVE) mg/dL Urine Occult Blood MODERATE H (NEGATIVE) Urine Nitrite NEGATIVE (NEGATIVE) Urine Bilirubin MODERATE H (NEGATIVE) Urine Urobilinogen >=8.0 H (NORMAL) E.U./dL Ur Leukocyte Esterase NEGATIVE (NEGATIVE) Urine RBC 6-10 H (0-5) /HPF Urine WBC 11-25 H (0-3) /HPF Ur Squamous Epith Cells FEW Squamous (<= Few) Urine Bacteria Few (None Seen) /HPF Ur Microscopic Review INDICATED Urine Culture Comments INDICATED Nasal Adenovirus (PCR) Nasal B. parapertussis DNA (PCR) Nasal Coronavir 229E PCR Nasal Coronavir HKU1 PCR Nasal Coronavir NL63 PCR Nasal Coronavir OC43 PCR Nasal Enterovir/Rhinovir PCR Nasal Influenza B PCR Nasal Influenza A PCR Nasal Parainfluen 1 PCR Nasal Parainfluen 2 PCR Nasal Parainfluen 3 PCR Nasal Parainfluen 4 PCR Nasal RSV (PCR) Nasal B.pertussis DNA PCR Nasal C.pneumoniae (PCR) Uvaldo Human Metapneumo PCR Nasal M.pneumoniae (PCR) Nasal SARS-CoV-2 (PCR) Chlam trachomat DNA PCR (NEGATIVE) N.gonorrhoeae DNA (PCR) (NEGATIVE) T. vaginalis (PCR) (NEGATIVE) Assessment/Plan Problem List (1) Leukocytosis: Impression: Increased from 30.5-41.2 Continue Zosyn Check MRSA PCR I expect preliminary culture results later today to help guide further antibiotic choice (2) Colitis: Impression: Per general surgery, no indication for surgical consult at this time Aggressive IV fluid resuscitation Patient reports no receptive anal intercourse or assault Patient history is questionable, will go ahead and perform STD testing including syphilis, HIV, gonorrhea, trichomonas Zosyn Okay for diet (3) Cystitis: Impression: Zosyn Culture pending STD panel negative thus far (4) Hypokalemia: Impression: Repleted and resolved Chemistry panel daily while in the hospital (5) Deliberate self-cutting: Impression: Scars are old No concern for ongoing self-harm
[2024-07-19] MEDS: FLUoxetine 10 MG CAPSULE PO SCH (09:59)
[2024-07-19] MEDS: ENOXAPARIN 40 MG/0.4 ML SYRINGE SUBQ SCH (09:59)
[2024-07-19] MEDS ORDERED: SODIUM CHLORIDE 0.9% 1,000 ML IV SCH ×2 (10:24→11:00)
--- NOTE | 2024-07-19 10:54 | PHARMACY PROGRESS NOTE ---
Best Possible Medication History Admit Date and Time: 07/18/24 1637 Home Medications Medication Instructions Recorded Confirmed Type estradiol valerate 20 mg/mL 10 mg IM OAW 05/24/24 07/18/24 History intramuscular oil fluoxetine 10 mg tablet 10 mg PO DAILY 05/24/24 07/18/24 History progesterone micronized 100 mg 100 mg PO DAILY 05/24/24 07/18/24 History capsule Processed by: Nursing Patient Interview: Completed Secondary Source(s): Prescription bottles, Pharmacy records and Insurance records [facility] Statement: As the person ultimately responsible for medication therapy, providers are able to order a medication from an existing home medication list in [facility] via the "Reconcile Routine" prior to Confirmation of that medication by client support administrator. Such practice is discouraged except when the physician, in their clinical judgment, deems that a medical need exists for a medication without regard to previous use.
[2024-07-19] MEDS: SODIUM CHLORIDE 0.9% 1,000 ML IV SCH (11:05)
[2024-07-19] MEDS: oxyCODONE 5 MG TABLET PO PRN (11:05)
[2024-07-19] MEDS: PROGESTERONE 100 MG PO SCH (12:16)
[2024-07-19] MEDS: ESTRADIOL VALERATE 20 MG/ML IM SCH (12:18)
[2024-07-19] MEDS: OIL IM SCH (12:18)
[2024-07-19] MEDS ORDERED: LORazepam 1 MG TABLET PO PRN (17:51)
[2024-07-19] MEDS: SODIUM CHLORIDE 0.9% 1,000 ML IV STA (19:53)
[2024-07-19] MEDS: AMOX/CLAV 500 MG/125 MG TABLET PO SCH (20:14)
[2024-07-19] MEDS: QUEtiapine 25 MG TABLET PO SCH (21:08)
[2024-07-19] MEDS: MELATONIN 3 MG TABLET PO SCH (21:08)
[2024-07-19] MEDS: ONDANSETRON 4 MG/2 ML VIAL IVP PRN (23:44)
[2024-07-20 03:02] VITALS: O2SAT 97
[2024-07-20 03:09] LABS: HIV SCREEN 4TH GENERATION Non Reactive (Non Reactive)
[2024-07-20 06:32] LABS: BASOPHILS % (AUTO) 0.1 %; EOSINOPHILS % (AUTO) 0.2 %; HCT - HEMATOCRIT 28.2 % (42.0-52.0); HGB - HEMOGLOBIN 9.5 g/dL (14.0-18.0); LYMPHOCYTES % (AUTO) 4.6 %; MEAN CORPUSCULAR HEMOGLOBIN 28.3 pg (27.0-31.0); MEAN CORPUSCULAR HGB CONC 33.7 g/dL (32.0-36.0); MEAN CORPUSCULAR VOLUME 83.9 fL (80.0-94.0); MEAN PLATELET VOLUME 9.8 fL (7.4-11.4); MONOCYTES % (AUTO) 3.8 %; NEUTROPHILS % (AUTO) 88.6 %; PLT - PLATELET COUNT 342 10^3/uL (130-450); RED BLOOD COUNT 3.36 10^6/uL (4.70-6.10); RED CELL DISTRIBUTION WIDTH 13.8 % (12.0-15.0); WHITE BLOOD COUNT 30.2 x10^3/uL (4.8-10.8)
[2024-07-20 06:38] LABS: ABNORMAL LYMPHS % (MANUAL) 0 %
[2024-07-20 07:03] LABS: BAND NEUTROPHILS % (MANUAL) 7 %; LYMPHOCYTES # (MANUAL) 1.8 10^3/uL (1.5-3.5); LYMPHOCYTES % (MANUAL) 6 %; MONOCYTES # (MANUAL) 1.5 10^3/uL (0.0-1.0); NEUTROPHILS # (MANUAL) 26.9 10^3/uL (1.5-6.6)
[2024-07-20 07:04] LABS: DIFFERENTIAL COMMENT MANUAL DIFFERENTIAL; PLATELET ESTIMATE, MANUAL NORMAL (130-450,000) (NORMAL); PLATELET MORPHOLOGY NORMAL APPEARANCE (NORMAL); RBC MORPHOLOGY (MULTIPLE) 1+ HYPOCHROMASIA (NORMAL)
[2024-07-20 09:40] LABS: THYROID STIMULATING HORMONE 6.15 uIU/mL (0.34-5.60)
[2024-07-20 09:45] VITALS: BP 105/47; TEMP 97.5
[2024-07-20] MEDS: GI COCKTAIL 120 ML BOTTLE PO PRN (10:54)
[2024-07-20] MEDS: PIPERACILLIN/TAZOBACTAM 4.5 GM in SODIUM CHLORIDE 0.9% MINIBAG 100 ML IV SCH (10:55)
--- NOTE | 2024-07-20 10:55 | Discharge Summary ---
"Discharge Summary Admit Date: 07/18/24 Discharge Date: 07/20/24 Discharging Provider: Glen Mejia NP Primary Care Provider: Does not remember PCPs name Code Status: Attempt Resuscitation DIAGNOSES Admission Diagnoses: Hypokalemia Colitis Leukocytosis Cystitis, acute Deliberate self cutting Discharge Diagnoses with Status of Each Condition: Hypokalemia Resolved Colitis Acute Leukocytosis Acute Cystitis-acute Deliberate self cutting History of HPI History of Present Illness: 19-year-old MTF transgender on progesterone and estradiol presents to the ED with 3 to 4 days of abdominal pain and fevers at home. Denies any history of abdominal surgeries. Denies receptive anal intercourse, trauma/assault. Reports last bowel movement was today. Reports delayed start with urination and rectal pain during urination. In the ER, she was noted to have a severe leukocytosis at 30.5. Mildly tachycardic at 100, and abdominal pain required IV pain medication. Potassium was noted to be 2.8, so hospitalist was contacted for admission. General surgery was also contacted, they report there is no need for surgical consultation at this time but they are on standby if needed. CONSULTS | PROCEDURES Consultations: General surgery was consulted by ER provider HOSPITAL COURSE Hospital Course: Placed in observation and started on IV Zosyn for colitis/cystitis. All cultures are no growth to date. Symptoms have improved after aggressive IV fluid resuscitation and antibiotics. Hypokalemia resolved after repletion. Denies assault, but will go ahead and cover for STIs with a one-time dose of azithromycin. WBC initially went up, but is now going down, so she will be discharged on Augmentin If her symptoms do not resolve, will likely need workup for other causes of colitis such as ulcerative colitis. Has history of cutting herself out of frustration, recommend she gets established with therapy/psychiatry ALLERGIES Allergies Allergy/AdvReac Type Severity Reaction Status Date / Time No Known Drug Allergies Allergy Verified 07/15/24 15:04 MEDICATIONS Ambulatory Orders Medication Instructions Recorded Confirmed estradiol valerate 20 mg/mL 10 mg IM TH 05/24/24 07/19/24 intramuscular oil fluoxetine 10 mg tablet 10 mg PO DAILY 05/24/24 07/18/24 progesterone micronized 100 mg 100 mg PO DAILY 05/24/24 07/18/24 capsule amoxicillin 875 mg-potassium 1 tab PO BID #60 tabs 12/20/24 clavulanate 125 mg tablet oxycodone 5 mg tablet 10 mg (2 x 5 mg) PO Q4HR PRN 07/20/24 Moderate Pain (Level 4-6) 3 days #20 tabs PHYSICAL EXAM AT DISCHARGE General Appearance: positive No acute distress and Alert Eyes Bilateral: positive Normal inspection ENT: positive ENT inspection nml Neck: positive Nml inspection Respiratory: positive Chest non-tender Cardiovascular: positive Regular rate & rhythm Peripheral Pulses: positive 2+ Abdomen: positive Tenderness Skin: positive Color nml Extremities: positive Non-tender Neurologic/Psychiatric: positive Oriented x3 LABS 07/20/24 06:18 07/19/24 05:35 DIAGNOSTIC IMAGING Diagnostic Imaging Results: Final report reviewed Diagnostic Imaging Results Comments: CT abdomen/pelvis: Abnormal diffuse mesenteric edema lower abdomen/pelvis as discussed above. Moderate bladder wall thickening which may be reactive or related to cystitis. Moderate wall thickening of the sigmoid colon, rectum and anus wall thickening, suspicious for infectious/inflammatory colitis, proctitis or other process as discussed above. Moderate hepatosplenomegaly. Mild ileus/bowel stasis. Follow-up is needed. SEPSIS Current Stage of Sepsis: Sepsis Possible source of Sepsis: GI tract/intra-abdominal FOLLOW UP Follow Up: With PCP in 1 week TIME SPENT Time Spent in Discharge (Minutes): 35 Discharge Plan Discharge Patient Disposition: 01 Home, Self Care Condition: Stable Medically Cleared Date:: 07/20/24 Prescriptions: New oxycodone 5 mg Tablet 10 mg PO Q4HR PRN (Reason: Moderate Pain (Level 4-6)) 3 Days Qty: 20 0RF amoxicillin-pot clavulanate 875-125 mg tablet 1 tab PO BID Qty: 60 0RF Continued fluoxetine 10 mg tablet 10 mg PO DAILY Patient Comments: Take 1 tablet by mouth once a day for mood disorder estradiol valerate 20 mg/mL oil 10 mg IM TH Patient Comments: taken every Tuesday progesterone micronized 100 mg capsule 100 mg PO DAILY Diet: Regular Interventions: Discharge Last Done: 07/20/24 12:19 Discharge Checklist - Nursing Last Done: 07/20/24 12:19 Health Concerns: You are a 19-year-old patient with past medical history significant for self- harm, Hand surgery, in the process of transitioning to female on progesterone and estradiol who presented to the ED with 3 to 4 days of abdominal pain and fevers. Workup was significant for colitis and urinary tract infection. Because of this colitis, you had a low potassium level which is the reason why you were admitted.Your symptoms were suggestive of the infection becoming systemic, so you were placed on IV antibiotics and your white blood cell count has improved after 2 days of antibiotics. I am discharging you home on the same medication regimen you are on prior to admission with the addition of Augmentin which you will take twice a day until the bottle is empty. I am providing you with some oxycodone that you can take for stomach pain. I would suggest that you pick remover an [id number] Mylanta or Pepto as this may help with your abdominal symptoms I am unsure the cause of your colitis. It seems to be responding to antibiotics. If this does not go away after your course of antibiotics, reach out to your primary care provider for further workup Care Plan Goals: I would like for you to finish your course of antibiotics. If your symptoms do not resolve on these antibiotics please reach out to your primary care provider. You should follow-up with your primary care provider regardless within a week. Assessment: Reported living at [facility], and that you have family that she can reach out to his for support. No limitations on performing activities of daily living. Reach out to nursing with any questions about your medication regimen. Follow- up with primary care within a week Plan of Treatment: Discharge medications: Augmentin 875 mg p.o. twice daily Oxycodone 10 mg p.o. every 4 as needed, 10 total doses Print Language: Congolese Patient Instructions: ED Gastroenteritis Bacterial Stand Alone Forms: PCP List"
[2024-07-20] MEDS: SODIUM CHLORIDE FLUSH 0.9% 10 ML SYRINGE IVP PRN (11:02)
[2024-07-20] MEDS: AZITHROMYCIN 250 MG TABLET PO STA (11:13)
[2024-07-21 07:08] LABS: ADENOVIRUS F 40/41 Not Detected (Not Detected); ASTROVIRUS Not Detected (Not Detected); C DIFFICILE TOXIN A/B Not Detected (Not Detected); CAMPYLOBACTER Not Detected (Not Detected); CRYPTOSPORIDIUM Not Detected (Not Detected); CYCLOSPORA CAYETANENSIS Not Detected (Not Detected); ENTAMOEBA HISTOLYTICA Not Detected (Not Detected); ENTEROAGGREGATIVE E COLI Not Detected (Not Detected); ENTEROPATHOGENIC E COLI Not Detected (Not Detected); ENTEROTOXIGENIC E COLI Not Detected (Not Detected); GIARDIA LAMBLIA Not Detected (Not Detected); NOROVIRUS GI/GII Not Detected (Not Detected); PLESIOMONAS SHIGELLOIDES Not Detected (Not Detected); ROTAVIRUS A Not Detected (Not Detected); SALMONELLA Not Detected (Not Detected); SAPOVIRUS Not Detected (Not Detected); SHIGA-TOXIN-PRODUCING E COLI Not Detected (Not Detected); SHIGELLA/ENTEROINVASIVE E COLI Not Detected (Not Detected); VIBRIO Not Detected (Not Detected); VIBRIO CHOLERAE Not Detected (Not Detected); YERSINIA ENTEROCOLITICA Not Detected (Not Detected)
[2024-07-21 08:08] LABS: RPR Non Reactive (Non Reactive)
== END 2024-07-20 12:55 | disposition home or self-care (01) ==
LOC: ED 09:09 → MS2 09:09
PROVIDERS: ADMIT Nurse Practitioner Acute Care; ATTEND Nurse Practitioner Acute Care